=== PATIENT | female | born 1980 ===

== ENCOUNTER 2022-07-22 14:03 | Outpatient (CLI) | payer OTHER | END 2022-07-22 17:40 | disposition home or self-care (01) | LOC: PRENATAL 14:03 | PROVIDERS: ATTEND Obstetrics & Gynecology Maternal & Fetal Medicine | DX: O36.80X0 Pregnancy with inconclusive fetal viability, not applicable or unspecified (principal); O09.819 Supervision of pregnancy resulting from assisted reproductive technology, unspecified trimester; Z31.0 Encounter for reversal of previous sterilization ==

== ENCOUNTER 2022-07-29 10:58 | Outpatient (CLI) | payer OTHER | END 2022-07-29 13:25 | disposition home or self-care (01) | LOC: PRENATAL 10:58 | PROVIDERS: ATTEND Obstetrics & Gynecology Maternal & Fetal Medicine | DX: O09.519 Supervision of elderly primigravida, unspecified trimester (principal); O30.90 Multiple gestation, unspecified, unspecified trimester; O09.819 Supervision of pregnancy resulting from assisted reproductive technology, unspecified trimester ==

== ENCOUNTER 2022-08-21 10:40 | Outpatient (CLI) | payer OTHER | END 2022-08-21 14:21 | disposition home or self-care (01) | LOC: PRENATAL 10:40 | PROVIDERS: ATTEND Obstetrics & Gynecology Maternal & Fetal Medicine | DX: O36.80X0 Pregnancy with inconclusive fetal viability, not applicable or unspecified (principal); O30.90 Multiple gestation, unspecified, unspecified trimester; O09.819 Supervision of pregnancy resulting from assisted reproductive technology, unspecified trimester; Z3A.14 14 weeks gestation of pregnancy ==

== ENCOUNTER 2022-08-25 11:12 | Outpatient (CLI) | payer OTHER | END 2022-08-25 13:00 | disposition home or self-care (01) | LOC: PRENATAL 11:12 | PROVIDERS: ATTEND Obstetrics & Gynecology Maternal & Fetal Medicine | DX: O36.80X0 Pregnancy with inconclusive fetal viability, not applicable or unspecified (principal); O26.899 Other specified pregnancy related conditions, unspecified trimester; O31 Complications specific to multiple gestation; Z3A.14 14 weeks gestation of pregnancy ==

== ENCOUNTER 2022-09-03 10:30 | Outpatient (CLI) | payer OTHER | END 2022-09-03 12:45 | disposition home or self-care (01) | LOC: PRENATAL 10:30 | PROVIDERS: ATTEND Obstetrics & Gynecology Maternal & Fetal Medicine | DX: O26.849 Uterine size-date discrepancy, unspecified trimester (principal); O30.90 Multiple gestation, unspecified, unspecified trimester; O09.819 Supervision of pregnancy resulting from assisted reproductive technology, unspecified trimester; O09.519 Supervision of elderly primigravida, unspecified trimester; Z3A.16 16 weeks gestation of pregnancy; Z33.1 Pregnant state, incidental; Z36.0 Encounter for antenatal screening for chromosomal anomalies; O09.92 Supervision of high risk pregnancy, unspecified, second trimester ==

== ENCOUNTER 2022-09-09 11:37 | Outpatient (CLI) | payer OTHER | END 2022-09-09 14:25 | disposition home or self-care (01) | LOC: PRENATAL 11:37 | PROVIDERS: ATTEND Obstetrics & Gynecology Maternal & Fetal Medicine | DX: O26.849 Uterine size-date discrepancy, unspecified trimester (principal); O30.90 Multiple gestation, unspecified, unspecified trimester; O09.819 Supervision of pregnancy resulting from assisted reproductive technology, unspecified trimester; O26.899 Other specified pregnancy related conditions, unspecified trimester; O26.859 Spotting complicating pregnancy, unspecified trimester; Z3A.17 17 weeks gestation of pregnancy ==